=== PATIENT | female | born 1945 | race Caucasian/White ===

== ENCOUNTER 2017-06-29 07:04 | Day surgery (SDC) | payer MEDICARE, BC ==
[~2017-06-29 07:04] MED LIST: Midazolam 1 MG/ML 2 ML SDV ONE; Propofol 200 MG/20 ML SDV ONE; fentaNYL 100 MCG/2 ML SDV ONE
[2017-06-29] MEDS ORDERED: Dextrose 5%-Lactated Ringers 1,000 ML IV SCH (07:45)
[2017-06-29] MEDS ORDERED: Glycopyrrolate 0.2 MG/ML 2 ML SDV IVPUSH ONE (08:30)
[2017-06-29 11:00] VITALS: BP 117/72
--- NOTE | 2017-07-03 15:51 | OR ---
DATE OF PROCEDURE: 06/29/2017 PREOPERATIVE DIAGNOSIS: History of Berg esophagus. POSTOPERATIVE DIAGNOSES: History of Berg esophagus with mild inflammation of esophagogastric junction. OPERATIVE PROCEDURE: Upper GI endoscopy with biopsies of the esophagogastric junction for followup of Berg esophagus. ANESTHESIA: IV sedation. INDICATION FOR PROCEDURE: A 72-year-old presenting for followup endoscopy for surveillance of her Berg esophagus. Potential risks of procedure including bleeding and perforation were discussed, and the patient wishes to proceed. DETAILS OF PROCEDURE: The patient was taken to the operating room and placed in a left lateral decubitus position. IV sedation was administered after which the upper GI endoscope was passed orally through the esophagus and into the area of the esophagogastric junction and from there into the Rakel limb as the patient is status post previous Rakel-en-Y gastric bypass. The patient was noted to have some mild inflammation at the EG junction. There was some upward extension of the gastroesophageal junction mucosal lining consistent with history of Berg esophagus. No stricturing or gross evidence of neoplasia was seen and the remainder of the examination was unremarkable. At this point, biopsies were obtained from the esophagogastric junction, focusing on the areas of columnar mucosa. Minimal bleeding from the biopsy sites was seen and the procedure concluded. The patient was taken to the recovery room in satisfactory condition. Plan will be to have the patient repeat the endoscopy in 2 years unless worsening or progression of the dysplasia within the Berg esophagus. Reji Mao MD /[id number]
== END 2017-06-29 11:20 | disposition home or self-care (01) ==
LOC: JP.SDS 07:04
PROVIDERS: ATTEND Surgery
DX: K22.70 Barrett's esophagus without dysplasia (principal); I10 Essential (primary) hypertension; Z98.84 Bariatric surgery status; Z88.8 Allergy status to other drugs, medicaments and biological substances
CPT/HCPCS: 43239; J2250; J2704; J3010; J7042; 88305; J3490

== ENCOUNTER 2019-09-16 05:14 | Day surgery (SDC) | payer MEDICARE ==
[2019-09-16] MEDS ORDERED: Dextrose 5%-Lactated Ringers 1,000 ML IV SCH (06:15)
[2019-09-16] MEDS ORDERED: Propofol 200 MG/20 ML SDV ONE (07:09)
[2019-09-16] MEDS ORDERED: fentaNYL 100 MCG/2 ML SDV ONE (07:09)
[2019-09-16] MEDS ORDERED: Midazolam 1 MG/ML 2 ML SDV ONE (07:10)
[2019-09-16 08:58] VITALS: BP 125/60; PULSE 58
--- NOTE | 2019-09-23 14:28 | OR ---
DATE OF PROCEDURE: 09/16/2019 SURGEON: Reji Mao MD PREOPERATIVE DIAGNOSES: 1. History of Berg esophagus. 2. History of Crohn disease. POSTOPERATIVE DIAGNOSES: 1. History of Berg esophagus, minimal inflammation at the esophagogastric junction. 2. History of Crohn disease with normal colonoscopic examination. OPERATIVE PROCEDURES: 1. Esophagogastroduodenoscopy with biopsy of esophagogastric junction for histologic evaluation (10050). 2. Flexible colonoscopy (71892). ANESTHESIA: IV sedation. INDICATION FOR PROCEDURE: A 74-year-old female presenting for followup upper GI endoscopy for known history of Berg esophagus. The patient is status post Rakel-en-Y gastric bypass. The patient also has a history of Crohn disease, and for this, a screening colonoscopy is indicated. Potential risks including bleeding and perforation were discussed, and the patient wishes to proceed. DETAILS OF PROCEDURE: The patient was taken to the operating room and placed in a left lateral decubitus position. IV sedation was administered, after which the upper GI endoscope was passed orally through the length of the esophagus, into the stomach, into the gastric pouch, and through the gastrojejunostomy roughly 20 cm into the Rakel limb. Overall, the findings were essentially normal other than perhaps some minimal inflammation at the esophagogastric junction with some upward extension of the gastroesophageal junction mucosal line consistent with history of Berg esophagus. Multiple biopsies were obtained from that area, and minimal bleeding from the biopsy sites was seen, and the procedure was then concluded. Attention was then taken to the colonoscopy. Initial digital rectal exam was performed and was unremarkable. Colonoscope was then passed into the rectum with retroflexion revealing uncomplicated hemorrhoidal columns. Scope was then passed to the level of the cecum. To that level, no abnormalities were noted. There were no areas of inflammation, polyps, or other signs of neoplasia, and no diverticular disease. Scope was then withdrawn, the above findings reconfirmed, and the procedure then concluded. Assuming that there is no progression of Berg esophagus toward dysplasia, the next upper endoscopy should be in roughly 2 years, and one would consider followup colonoscopy in 5 years given history of Crohn disease. Reji Mao MD /[id number]
== END 2019-09-16 09:04 | disposition home or self-care (01) ==
LOC: JP.SDS 05:14
PROVIDERS: ATTEND Surgery
DX: Z12.11 Encounter for screening for malignant neoplasm of colon (principal); K29.50 Unspecified chronic gastritis without bleeding; K21.0 Gastro-esophageal reflux disease with esophagitis; K64.9 Unspecified hemorrhoids; Z98.84 Bariatric surgery status; Z87.19 Personal history of other diseases of the digestive system
CPT/HCPCS: 43239; 88305; G0105; J2250; J2704; J3010; J7121

== ENCOUNTER 2021-05-06 07:01 | Day surgery (SDC) | payer MEDICARE ==
[2021-05-06 07:31] VITALS: BP 133/59; PULSE 65
[2021-05-06] MEDS ORDERED: Sodium Chloride 0.9% 10 ML Syringe FLUSH PRN (08:00)
== END 2021-05-06 09:00 | disposition home or self-care (01) ==
LOC: JP.SDS 07:01
PROVIDERS: ATTEND Ophthalmology
DX: H25.12 Age-related nuclear cataract, left eye (principal); K21.9 Gastro-esophageal reflux disease without esophagitis; Z88.8 Allergy status to other drugs, medicaments and biological substances
CPT/HCPCS: V2632

== ENCOUNTER 2021-05-20 06:58 | Day surgery (SDC) | payer MEDICARE ==
[2021-05-20] MEDS ORDERED: Sodium Chloride 0.9% 10 ML Syringe FLUSH PRN (07:30)
[2021-05-20 08:42] VITALS: BP 159/80; PULSE 68
== END 2021-05-20 08:41 | disposition home or self-care (01) ==
LOC: JP.SDS 06:58
PROVIDERS: ATTEND Ophthalmology
DX: H25.811 Combined forms of age-related cataract, right eye (principal)
CPT/HCPCS: 66984; V2632

== ENCOUNTER 2021-09-24 06:41 | Day surgery (SDC) | payer MEDICARE ==
[2021-09-24] MEDS ORDERED: Propofol 200 MG/20 ML SDV ONE (07:03)
[2021-09-24] MEDS ORDERED: fentaNYL 100 MCG/2 ML SDV ONE (07:03)
[2021-09-24] MEDS ORDERED: Dextrose 5%-Lactated Ringers 1,000 ML IV SCH (07:45)
[2021-09-24] MEDS ORDERED: Ampicillin/Sulbactam Na 1.5 GM in Sodium Chloride 0.9% 50 ML IV ONE (08:00)
[2021-09-24 11:20] VITALS: PULSE 60
[2021-09-24 11:39] VITALS: BP 139/61
== END 2021-09-24 11:54 | disposition home or self-care (01) ==
LOC: JP.SDS 06:41
PROVIDERS: ATTEND Surgery
DX: K22.70 Barrett's esophagus without dysplasia (principal); K21.9 Gastro-esophageal reflux disease without esophagitis; Z98.84 Bariatric surgery status
CPT/HCPCS: 88305; J0295; J2704; J3010; J7121

== ENCOUNTER 2022-07-23 13:07 | Emergency (ER) | payer MEDICARE ==
[2022-07-23 13:31] VITALS: BP 102/75; PULSE 71
== END 2022-07-23 15:05 | disposition home or self-care (01) ==
LOC: JP.ED 13:07
DX: N12 Tubulo-interstitial nephritis, not specified as acute or chronic (principal); N39.0 Urinary tract infection, site not specified; R31.0 Gross hematuria; I25.10 Atherosclerotic heart disease of native coronary artery without angina pectoris; Z79.01 Long term (current) use of anticoagulants; Z88.8 Allergy status to other drugs, medicaments and biological substances; Z79.82 Long term (current) use of aspirin; Z95.0 Presence of cardiac pacemaker
CPT/HCPCS: 36415; 80048; 81001; 85025; 86140; 87086; 87088; 87186; 99283; 99284

== ENCOUNTER 2022-09-06 11:38 | Emergency (ER) | payer MEDICARE ==
[2022-09-06] MEDS ORDERED: Sodium Chloride 0.9% 10 ML Syringe FLUSH PRN (12:52)
[2022-09-06] MEDS ORDERED: Ondansetron 4 MG/2 ML SDV IVPUSH ONE (12:53)
[2022-09-06] MEDS ORDERED: Lactated Ringers 1,000 ML IV SCH (13:00)
[2022-09-06 13:29] LABS: BASOPHILS ABSOLUTE AUTO 0.07 K/uL (0.00-0.10); BASOPHILS PERCENT AUTO 0.7 % (0.1-1.3); EOSINOPHILS ABSOLUTE AUTO 1.14 K/uL (0.00-0.40); EOSINOPHILS PERCENT AUTO 10.7 % (0.0-5.4); HEMATOCRIT 43.8 % (34.3-46.0); HEMOGLOBIN 14.4 g/dL (11.2-15.5); IMMATURE GRAN ABSOLUTE AUTO 0.14 K/uL (0.00-0.23); IMMATURE GRAN PERCENT AUTO 1.3 % (0.0-0.7); LYMPHOCYTES ABSOLUTE AUTO 1.93 K/uL (0.8-3.3); LYMPHOCYTES PERCENT AUTO 18.1 % (11.4-47.7); MEAN CORPUSCULAR HEMOGLOBIN 29.1 pg (31.6-35.5); MEAN CORPUSCULAR HGB CONC 32.9 g/dL (31.6-35.5); MEAN CORPUSCULAR VOLUME 88.5 fL (81.4-99.0); MONOCYTES ABSOLUTE AUTO 1.28 K/uL (0.20-0.90); NEUTROPHILS ABSOLUTE AUTO 6.08 K/uL (1.0-7.6); NEUTROPHILS PERCENT AUTO 57.2 % (40.0-78.1); RED BLOOD CELL COUNT 4.95 M/uL (3.77-5.24); WHITE BLOOD CELL COUNT,WBC 10.6 K/uL (3.2-11.0)
[2022-09-06 13:39] LABS: APPEARANCE,URINE SLIGHTLY CLOUDY (CLEAR); BILIRUBIN,URINE MODERATE (NEGATIVE); COLOR,URINE YELLOW (YELLOW); GLUCOSE,URINE NEGATIVE (NEGATIVE); KETONES,URINE 40 mg/dL (NEGATIVE); LEUKOCYTE ESTERASE,URINE SMALL (NEGATIVE); NITRITE,URINE NEGATIVE (NEGATIVE); OCCULT BLOOD,URINE SMALL (NEGATIVE); PROTEIN,URINE 30 mg/dL (NEGATIVE); UROBILINOGEN,URINE 0.2 EU/dL (0.2-1.0)
[2022-09-06 13:42] LABS: PLATELET COUNT,PLT 320 K/uL (130-375)
[2022-09-06 13:59] LABS: A/G RATIO 0.8 (1.2-2.2); ALANINE AMINOTRANSFERASE,ALT 33 U/L (12-78); ALBUMIN 3.2 g/dL (3.4-5.0); ALKALINE PHOSPHATASE 107 U/L (46-116); ASPARTATE AMNIOTRANSFERASE,AST 38 U/L (15-37); BILIRUBIN TOTAL 0.6 mg/dL (0.2-1.0); BLOOD UREA NITROGEN,BUN 34 mg/dL (7-18); CALCIUM 8.9 mg/dL (8.5-10.1); CARBON DIOXIDE,CO2 22 mmol/L (21-32); CHLORIDE,CL 92 mmol/L (100-108); CREATININE 1.5 mg/dL (0.6-1.0); EST CRCL DRUG DOSING (CG) 23.32 mL/min; ESTIMATED GFR 35 mL/min (>60); GLUCOSE RANDOM 64 mg/dL (74-106); POTASSIUM,K 4.6 mmol/L (3.6-5.2); PROTEIN TOTAL,TP 7.2 g/dL (6.4-8.2); SODIUM,NA 130 mmol/L (140-148)
[2022-09-06 13:59] LABS: AMORPHOUS SEDIMENT,URINE NOT SEEN; BACTERIA,URINE MANY; EPITHELIAL CELLS,URINE FEW; MUCUS,URINE NOT SEEN; WBC,URINE SEMI-PACKED (0-5)
[2022-09-06 14:00] LABS: ANION GAP 20.6 mmol/L (5.0-14.0)
[2022-09-06] MEDS ORDERED: cefTRIAXone 1 GM in Sodium Chloride 0.9% 50 ML IV ONE (15:01)
[2022-09-06 16:10] VITALS: BP 100/38; PULSE 64
== END 2022-09-06 17:22 | disposition home or self-care (01) ==
LOC: JP.ED 11:38
DX: N39.0 Urinary tract infection, site not specified (principal); I25.10 Atherosclerotic heart disease of native coronary artery without angina pectoris; J45.909 Unspecified asthma, uncomplicated; Z95.0 Presence of cardiac pacemaker; Z88.8 Allergy status to other drugs, medicaments and biological substances; Z79.82 Long term (current) use of aspirin; Z79.899 Other long term (current) drug therapy; Z79.01 Long term (current) use of anticoagulants; Z87.891 Personal history of nicotine dependence
CPT/HCPCS: 36415; 80053; 81001; 83605; 83690; 84145; 85025; 87086; 87088; 87186; 96361; 96365; 96375; 99283; J0696; J2405; J3490; J7120